=== PATIENT | female | born 1935 | race Caucasian/White ===

== ENCOUNTER 2022-05-20 08:29 | Outpatient (CLI) | payer SELFPAY ==
--- NOTE | 2022-05-20 08:15 | RT.EKG_ITS ---
APPROVED REPORT Exam: Resting ECG Reason for Exam: palpitations Patient Location: O HR:80 bpm ECG Measurements Heart Rate 80 AXIS RI 150 P 56 QRSd 109 QRS -49 QT 393 T 97 QTc 454 Conclusion Sinus rhythm...normal P axis, V-rate 50- 99 Multiform ventricular premature complexes...short R-R, variable morphology LAFB LVH with secondary repolarization abnormality...multi-LVH criteria, abnrm ST-T Anterior infarct, old...Q >40mS, abnormal ST-T, V2-V5
== END 2022-05-20 08:30 | disposition home or self-care (01) ==
LOC: DI.CARD 08:30
PROVIDERS: PCP Family Medicine; Visit Provider Internal Medicine Cardiovascular Disease
DX: I10 Essential (primary) hypertension (principal); R00.2 Palpitations
CPT/HCPCS: 93010

== ENCOUNTER → 2022-08-01 10:15 | Outpatient (BNVA) | payer MEDICARE, OTHER, SELFPAY | PROVIDERS: PCP Family Medicine; Referring Provider Family Medicine; Visit Provider Internal Medicine Cardiovascular Disease | DX: R60.0 Localized edema (principal); I42.9 Cardiomyopathy, unspecified; R00.2 Palpitations | CPT/HCPCS: 99213 ==

== ENCOUNTER → 2024-01-12 10:23 | Outpatient (BNVA) | payer MEDICARE, MEDICAID, SELFPAY | PROVIDERS: PCP Family Medicine; Referring Provider Family Medicine; Visit Provider Student in an Organized Health Care Education/Training Program | DX: J45.909 Unspecified asthma, uncomplicated (principal); R13.10 Dysphagia, unspecified | CPT/HCPCS: 99214 ==

== ENCOUNTER → 2024-07-14 11:11 | Outpatient (BNVA) | payer MEDICARE, MEDICAID, SELFPAY | PROVIDERS: PCP Family Medicine; Referring Provider Family Medicine; Visit Provider Physician Assistant Surgical | DX: J45.909 Unspecified asthma, uncomplicated (principal) | CPT/HCPCS: 99214 ==

== ENCOUNTER 2024-12-26 18:09 | Inpatient (IN) | payer MEDICARE, MEDICAID, SELFPAY ==
--- NOTE | 2024-12-26 20:21 | W.PM.HP.N ---
Date of service: 12/26/24 Time of Service: 21:41 Assessment and Plan Assessment and plan (1) Acute hypoxic respiratory failure: Status: Acute Assessment and plan: Secondary to post-influenza pneumonia. Treat with IV antibiotics as below. Continue with supplemental O2 to maintain saturations above 90% and titrate off as able. (2) Pneumonia: Start date: 12/26/24 Status: Acute Assessment and plan: Post-influenza Pneumonia Continue with IV ceftriaxone and azithromycin. Continue with supplemental O2 to maintain O2 saturations above 90s. Unclear if blood cultures were obtained prior to transfer. (3) Influenza A: Status: Acute Assessment and plan: Patient was treated with Tamiflu following her initial diagnosis. Unclear as to whether she completed this course. Would not derive benefit now from resuming or continuing. (4) Atrial fibrillation: Status: Acute Assessment and plan: New diagnosis. Patient?s rates are currently controlled and she is HD stable. Continue Diltiazem per [facility] Home Medication list. ?CHADS-VASC score is 7 given co-morbidities (11.2% annual risk of CVA) while her HASBLED score is 5 (9.1% risk of major bleeding event annually). Would have discussion with patient and family regarding goals of care and shared decision making during her admission prior to initiating anticoagulation. She would be a good candidate for Watchman and referral to tertiary care center for evaluation if she is interested. Will obtain echo in the AM. Continue to monitor on telemetry. (5) Asthma: Status: Chronic Assessment and plan: Will provide Duonebs prn. Will hold on steroids at this point. Continue with supplemental O2. (6) Hallucinations: Status: Acute Assessment and plan: Mentating appropriately currently. Suspect either delirium related to acute infection with pneumonia vs chronic process related to potentially underlying dementia. CT head unremarkable at [facility]. Continue to monitor for now. Will need to frequently oriented the patient, ensure sleep-wake cycles remain intact, keep active during the day and limit nighttime interruptions of sleep. (7) CAD (coronary artery disease): Status: Chronic Assessment and plan: Troponin is not elevated. No concern for ACS. Home med list from [facility] includes Plavix as one of her medications. Will need pharmacy to reconcile her home medications in the morning. (8) HTN (hypertension): Assessment and plan: Await pharmacy?s reconciliation of home medications in the AM, then will resume antihypertensive regimen in the morning. (9) HLD (hyperlipidemia): Assessment and plan: Await pharmacy?s reconciliation of home medications in the AM. (10) Hypothyroidism: Assessment and plan: Await pharmacy?s reconciliation of home medications in the AM, then will resume thyroid replacement therapy (11) GERD (gastroesophageal reflux disease): Status: Chronic Assessment and plan: Will provide PPI (12) HFrEF (heart failure with reduced ejection fraction): Status: Acute Assessment and plan: Plan for echo in the AM. Does not appear to be decompensated on exam. Will need pharmacy to reconcile her home medications in the morning. Hold diuretics for now while we gently hydrate. Unclear if she is on GDMT currently, but per Cardiology note in 2021 she was on Entresto and Metoprolol History of Present Illness History of Present Illness Chief Complaint: Cough and dyspnea Narrative: Patient is an 89yo female with a PMH significant for CHF (EF unknown), CAD, GERD, prior SDH, HTN, HLD, and CVA who presented to [facility] today with complaints of increasing cough and dyspnea within the past couple of days following her diagnosis of Influenza A. The patient was apparently seen in the ED a couple of days ago and diagnosed with Influenza A. She was started on Tamiflu and discharged home. Since that time, she has had increased dyspnea and cough as well as hallucinations at home. Per EMS the patient was hypoxic with O2 saturations in the 80s on room air, improving to the 90s on 4L. She CXR demonstrated new RLL infiltrate concerning for superimposed pneumonia. She was started on Ceftriaxone and azithromycin as well as IVs. Her labs were otherwise notable for mild PARUL with creatinine elevated to 1.15 from prior baseline of 0.7 and she demonstrated a leukocytosis of 12,000. Her EKG was notable for atrial fibrillation without ischemic changes and troponin was negative. CT head was obtained which was negative for any acute findings. Due to [facility] being at capacity transfer to [facility] was requested. Review of Systems Narrative: 12 point ROS was obtained and is negative except per HPI PFSH All Active Problems (Updated 12/26/24 @ 21:39 by Rebeca James MD) HFrEF (heart failure with reduced ejection fraction) (Acute) Acute hypoxic respiratory failure (Acute) GERD (gastroesophageal reflux disease) (Chronic) CAD (coronary artery disease) (Chronic) CHF (congestive heart failure) (Chronic) Hallucinations (Acute) Influenza A (Acute) Atrial fibrillation (Acute) Pneumonia (Acute) Dysphagia (Acute) Abnormal chest xray (Acute) Asthma (Chronic) Cardiomyopathy (Acute) Medical History Pneumonia Medial epicondylitis Pain, joint, shoulder, right Pain in left knee Palpitations Headache Senile hyperkeratosis Cyst of pancreas Diverticulitis Enterocolitis Chronic gastritis Cough variant asthma Allergic rhinitis Subclavian artery stenosis Cerebrovascular disease HTN (hypertension) Bilateral deafness HLD (hyperlipidemia) Hypothyroidism Non-toxic multinodular goiter Surgical History Hx of cholecystectomy H/O: hysterectomy Social History Smoking/Tobacco Use Status: Never Smoking risk assessment performed?: Yes Current gender identity: female Meds Allergies and Home Medications Allergies Allergy/AdvReac Type Severity Reaction Status Date / Time amoxicillin (From Augmentin) Allergy Other (See Verified 07/14/24 11:18 Comment) azithromycin (From Zithromax) Allergy Other (See Verified 07/14/24 11:18 Comment) ciprofloxacin (From Cipro) Allergy Other (See Verified 07/14/24 11:18 Comment) clavulanic acid (From Allergy Other (See Verified 07/14/24 11:18 Augmentin) Comment) insect venom Allergy Other (See Verified 07/14/24 11:18 Comment) metronidazole (From Flagyl) Allergy Other (See Verified 07/14/24 11:18 Comment) Penicillins Allergy Other (See Verified 07/14/24 11:18 Comment) Home Medications ?Medication ?Instructions ?Recorded ?Confirmed ?Type ascorbate calcium (vitamin C) 500 500 mg PO DAILY 03/15/22 07/14/24 History mg tablet cholecalciferol (vitamin D3) 25 25 mcg PO DAILY 03/15/22 07/14/24 History mcg (1,000 unit) capsule clopidogrel 75 mg tablet (Plavix) 75 mg PO DAILY 03/15/22 07/14/24 History hydrochlorothiazide 25 mg tablet 25 mg PO DAILY 03/15/22 07/14/24 History levalbuterol HCl 1.25 mg/3 mL 1.25 mg inhalation Q4H 03/15/22 07/14/24 History solution for nebulization levothyroxine 75 mcg capsule 75 mcg PO DAILY 03/15/22 07/14/24 History vglfwj-hfiizzzk-mhakhzn 1 cap PO BID 03/15/22 07/14/24 History 24,000-76,000-120,000 unit capsule,delayed rel (Creon) loperamide 2 mg capsule 2 mg PO TID PRN 03/15/22 07/14/24 History multivitamin with minerals-folic 1 tab PO DAILY 03/15/22 07/14/24 History acid 120 mcg chewable tablet (Centrum Adult 50 Plus Fresh-Fruity) polyethylene glycol 3350 17 17 g PO DAILY 03/15/22 07/14/24 History gram/dose oral powder (Miralax) potassium chloride 10 mEq 10 meq PO DAILY 03/15/22 07/14/24 History capsule,extended release simvastatin 40 mg tablet 40 mg PO DAILY 03/15/22 07/14/24 History albuterol sulfate 90 mcg/actuation 2 puff inhalation QID PRN 03/25/22 07/14/24 History aerosol inhaler budesonide-formoterol HFA 160 2 puff inhalation BID 03/25/22 07/14/24 History mcg-4.5 mcg/actuation aerosol inhaler (Symbicort) sennosides 8.6 mg capsule (senna) 8.6 mg PO DIRECTED PRN 03/25/22 07/14/24 History sacubitril 24 mg-valsartan 26 mg 1 tab PO BID 08/01/22 07/14/24 History tablet (Entresto) zinc sulfate See Rx Instructions .Route 07/16/23 07/14/24 History DIRECTED acetaminophen 500 mg capsule 1,000 mg PO Q6H PRN 01/12/24 07/14/24 History calcium carbonate 500 mg PO DAILY 01/12/24 07/14/24 History diltiazem HCl 180 mg 180 mg PO DAILY 01/12/24 07/14/24 History capsule,extended release 24 hr furosemide 20 mg tablet (Lasix) 40 mg PO DAILY 01/12/24 07/14/24 History metoprolol succinate 25 mg 50 mg PO DAILY 01/12/24 07/14/24 History tablet,extended release 24 hr tiotropium bromide 2.5 2 puff inhalation QDAY 01/12/24 07/14/24 History mcg/actuation mist for inhalation Exam Narrative Exam Narrative: Gen: Pleasant elderly female lying in bed in no acute distress HEENT: AT/NC. PERRL. No scleral icterus. Mucous membranes moist Neck: Supple. Full ROM. No JVD, thyromegaly or lymphadenopathy. CVS: RRR with normal S1/S2. No M/G/R Lungs: Rhonchi noted in the right lower lobe without overt wheezing. Normal effort. Abdomen: S/NT/ND. No guarding or rebound. No masses Extremities: Warm and well perfused. No C/C/E. Pulses 2/4 in DP/TP Neuro: Alert and oriented x 3. CN 3-12 intact. Normal strength and sensation throughout. Speech is fluent Psych: Appropriate and cooperative Skin: intact without rashes or lesions Results Imaging Chest x-ray: report reviewed (New bilateral lower lobe infiltrates with small pleural effusions) Imaging Studies: CT of the head report reviewed No large territorial infarct or intercranial bleed Labs Labs: Labs from [facility] reviewed and are as follows WBC 12.3 Hemoglobin 13.7 Hematocrit 40.6 Platelets 260 VBG 7.3 / Time Spent Time spent with Patient: 55-74 minutes Time was spent: preparing to see the patient(eg.review tests), obtaining and/or reviewing separately otained hiistory, ordering medications,tests, procedures, referring, communicating with other health assurance services manager health care (Discussed with Dr. James, daytime hospitalist regarding transfer), indepentently interpreting results, counseling the patient and care coordination
[2024-12-26] MEDS: Doxycycline Hyclate 100 MG CAP PO (22:09)
[2024-12-26] MEDS: Lactated Ringers 1,000 ML 100 ML IV (22:47)
[2024-12-26] MEDS: Enoxaparin 40 MG/0.4 ML SYR 30 MG SC (22:51)
[2024-12-26 23:00] VITALS: BP 89/56; PULSE 65; RESP 20; TEMP 37.1; O2SAT 97
[2024-12-26 23:07] VITALS: BP 89/56; PULSE 65; RESP 20; TEMP 37.1; O2SAT 97
[2024-12-27] VITALS (10 sets, daily range): BP systolic 99–151; BP diastolic 46–91; PULSE 63–94; RESP 16–20; TEMP 36.3–37.9; O2SAT 90–97
[2024-12-27] MEDS: Levothyroxine 75 MCG TAB PO (06:12)
[2024-12-27] MEDS: Doxycycline Hyclate 100 MG CAP PO ×2 (06:12→21:41)
--- NOTE | 2024-12-27 06:30 | W.PC.ACHO ---
Registration Status: Primary Language: Preferred Language: Medical / Surgical History (Last Reviewed 12/26/24 @ 20:22 by Rebeca James MD) Medial epicondylitis Pain, joint, shoulder, right Pain in left knee Palpitations Headache Senile hyperkeratosis Cyst of pancreas Diverticulitis Enterocolitis Chronic gastritis Cough variant asthma Allergic rhinitis Subclavian artery stenosis Cerebrovascular disease HTN (hypertension) Bilateral deafness HLD (hyperlipidemia) Hypothyroidism Non-toxic multinodular goiter (Last Reviewed 12/26/24 @ 20:22 by Rebeca James MD) Hx of cholecystectomy H/O: hysterectomy Most Recent Vital Signs Temperature 37.3 C 12/27/24 03:52 Temperature Source Temporal Artery Scan 12/27/24 03:52 Pulse 84 12/27/24 03:52 Pulse Rhythm Irregular 12/26/24 23:07 Respiratory Rate 18 12/27/24 03:52 Respiratory Effort Normal 12/26/24 23:07 Respiratory Pattern Normal 12/26/24 23:07 Blood Pressure 116/69 12/27/24 03:52 Pulse Oximetry 96 12/27/24 03:52 Oxygen Delivery Method Nasal Cannula 12/27/24 03:52 Oxygen Flow Rate 1.5 12/27/24 03:52 Pain Level 0 12/26/24 23:07 Allergies amoxicillin (From Augmentin) Allergy (Verified 07/14/24 11:18) Other (See Comment) azithromycin (From Zithromax) Allergy (Verified 07/14/24 11:18) Other (See Comment) ciprofloxacin (From Cipro) Allergy (Verified 07/14/24 11:18) Other (See Comment) clavulanic acid (From Augmentin) Allergy (Verified 07/14/24 11:18) Other (See Comment) insect venom Allergy (Verified 07/14/24 11:18) Other (See Comment) metronidazole (From Flagyl) Allergy (Verified 07/14/24 11:18) Other (See Comment) Penicillins Allergy (Verified 07/14/24 11:18) Other (See Comment) Active Medications Generic Name Dose Route Start Last Admin Trade Name Freq PRN Reason Stop Dose Admin Doxycycline Hyclate 100 mg 12/26/24 19:00 12/27/24 06:12 Doxycycline Hyclate 100 Mg Cap PO 100 mg Q12H DEEPALI Administration Enoxaparin Sodium 30 mg 12/26/24 23:00 12/26/24 22:51 Enoxaparin 40 Mg/0.4 Ml Syr SC 30 mg HS DEEPALI Administration Ringer's Solution 1,000 mls @ 100 mls/hr 12/26/24 18:15 12/26/24 22:47 IV 100 mls/hr INFUSION DEEPALI Administration Levothyroxine Sodium 75 mcg 12/27/24 06:00 12/27/24 06:12 Levothyroxine 75 Mcg Tab PO 75 mcg DAILY@0600 DEEPALI Administration IV IV Catheter Type [Right Peripheral IV Forearm] IV Catheter Gauge [Right 18 Forearm] Diagnostics 12/27/24 Range/Units 05:35 WBC Pending RBC Pending Hgb Pending Hct Pending MCV Pending MCH Pending MCHC Pending RDW Pending Plt Count Pending MPV Pending Sodium Pending Potassium Pending Chloride Pending Carbon Dioxide Pending Anion Gap Pending BUN Pending Creatinine Pending Est GFR (CKD-EPI 2020) Pending Glucose Pending Calcium Pending Intake and Output - 24 Hour Total 12/26/24 thru 12/26/24 23:07 Weight 49.351 kg Other: Urine Color Yellow Urine Appearance Clear Urine Odor Normal Falls Risk Assessment History of Falls No History 12/26/24 23:07 Contributing Factors No Factors 12/26/24 23:07 Ambulatory Aids Uses ambulatory device 12/26/24 23:07 Fall Total Score 15 12/26/24 23:07 Level of Risk Standard/Low Risk 12/26/24 23:07 Problems (Last Reviewed 12/26/24 @ 20:22 by Rebeca James MD) HFrEF (heart failure with reduced ejection fraction) (Acute) Acute hypoxic respiratory failure (Acute) GERD (gastroesophageal reflux disease) (Chronic) CAD (coronary artery disease) (Chronic) Hallucinations (Acute) Influenza A (Acute) Atrial fibrillation (Acute) Pneumonia (Acute) Asthma (Chronic) v v v v v v v v v Sending and/or Receiving Nurses: Please use comment section below to note any information pertinent to the patient hand-off not included above. Information / Comments: Report received from: pt transferred from [facility] ER to [facility] via ambulance. AAO x 4 individual who lives at home alone. she is id Flu A+, PNA and has new onset AFIBl. Patient able to ambulate with standby assist. VSS, shonna site, #20 in LFA. She received a NS bolus, IC ceftriaxone and azithromycin. patient to arrived go this facily at [id number]
[2024-12-27 06:55] LABS: HCT 31.3 % (36.0-46.0); HGB 10.4 g/dL (11.2-15.7); MCH 32.9 pg (27.0-33.0); MCHC 33.2 % (32.0-36.0); MCV 99 fL (80-95); MPV 9.9 fL (8.0-11.0); Platelet Count 215 10^3/uL (130-400); RBC 3.16 10^6/uL (3.93-5.22); RDW 14.7 % (11.7-14.6); WBC 8.95 10^3/uL (4.4-10.8)
[2024-12-27 07:20] LABS: Anion Gap 9.6 mmol/L (3-11); BUN 28 mg/dL (7-18); CO2 27.4 mmol/L (21.0-32.0); CREATININE 0.8 mg/dL (0.55-1.02); Calcium 8.4 mg/dL (8.5-10.1); Chloride 108 mmol/L (98-107); Estimated GFR 71.27 (mL/min/1.73m2); Glucose 88 mg/dL (74-106); Potassium 3.1 mmol/L (3.5-5.1); Sodium 145 mmol/L (136-145)
[2024-12-27] MEDS: Clopidogrel 75 MG TAB PO (08:33)
[2024-12-27] MEDS: Metoprolol 50 MG TAB PO ×2 (08:33→21:42)
[2024-12-27] MEDS: Oseltamivir 30 MG CAP PO ×2 (08:33→21:44)
[2024-12-27] MEDS: Omeprazole 20 MG CAPCR PO (08:34)
[2024-12-27] MEDS: dilTIAZem CD 180 MG CAPCR PO (08:34)
[2024-12-27] MEDS: Multivitamin TAB 1 TAB PO (08:34)
[2024-12-27] MEDS: Budesonide/Formoterol 160/4.5 6 GM 60 PUFF INH IH ×2 (08:47→21:29)
--- NOTE | 2024-12-27 09:36 | INITIAL_ITS ---
Date of service: 12/27/24 Time of Service: 09:36 Care Management Initial Assmt Initial Assessment Reason for Hospitalization: Pneumonia, Influenza new onset afib Functional Status/Living Situation Patient Presentation: Yoko was sitting up in bed when CM met with her. She was pleasant and agreeable to conversation. Yoko was admitted with Influenza and pneumonia. Clinically she is improving. She is afebrile and is saturating in the 90s on room air. Her vital signs are fairly stable (blood pressure a little low) and she is afebrile. Yoko lives alone in a single family home in [place]. She has one daughter and 2 grandchildren. She reported that she and her daughter are not particularly close but that she is close to her 2 grandchildren who live out of state. Yoko receives Food and fule assistance but no other services. She is independent at baseline but no longer drives. Town of Residence: [place], [place] Resides with: Alone Significant Other/Family: Out of area (daughter local, grandchildren out of state) Employment Status: Retired Instrumental Activities of Daily Living (ADLs): Independent Medications Medication Management: No Issues/Barriers identified Physical Functioning/Mobility Assistive Device: walker Advance Directives Advance Directives: Do you have an Advance Directive: AD On File at [facility]: N 12/26/24 16:46 Date Asked 12/26/24 12/26/24 16:46 AD Date Reviewed COLST On File at [facility] COLST Date Scanned Code Status Resuscitation Status Full Code Portal Pt does not currently have a portal and education provided: No Portal Education: Other (out of area) Insurance Coverage/Financial Issues Insurance: [employer] Medicare Replacement Care Team Visit Care Team Role Provider Type Margarita Eisenebrg NP NURSE PRACTITIONER Malcolm Perera DO Primary Care Provider NON-[facility] STAFF PHYSICIAN [place] Other Providers [facility] OCCUPATIONAL THERAPIS T InPatient Derrell Joaquin Other Providers OTHER Rebeca James MD Attending Provider [facility] STAFF PHYSICIAN Bishnu James MD Admit Provider [facility] STAFF PHYSICIAN Discharge Potential Discharge Needs: PCP F/U Appt Anticipated Barriers to Discharge: Medical Status Patient/Family Education Needs: Review discharge instructions, discuss Ask Me Three Transportation: Private vehicle Plan: Anticipate Yoko will be discharged home with no new services. She will follow up with her PCP and plan of care and transport with family. CM will follow and continue to support discharge planning. Social Determinants of Health Screening Social Determinants of Health last assessed: 12/27/24 Will the Patient Participate in the Screening?: Yes Do you worry about having a steady place to live?: no Problems where you live: no known problems In the past 12 months, have you had to go without electric, gas, oil or water in your home?: no Have you or anyone in your house had to go without enough food to eat?: no Has lack of transportation kept you from medical appointments or from doing things needed for daily living?: no Has anyone in your life made you feel unsafe or unsupported?: no How hard is it for you to pay for the very basics like food, housing, medical care, and heating? Would you say it is:: Not hard at all Do you want help finding or keeping work or a job?: I do not need or want help If for any reason you need help with day-to-day activities such as bathing, preparing meals, shopping, managing finances, etc., do you get the help you need?: I don?t need any help How often do you feel lonely or isolated from those around you?: Never Do you speak a language other than [place]ak[place] at home?: No Does the patient want assistance with any of the above?: No PFSH All Active Problems (Updated 12/27/24 @ 12:28 by Margarita Eisenberg NP) Hypokalemia (Acute) HFrEF (heart failure with reduced ejection fraction) (Acute) Acute hypoxic respiratory failure (Acute) GERD (gastroesophageal reflux disease) (Chronic) CAD (coronary artery disease) (Chronic) CHF (congestive heart failure) (Chronic) Hallucinations (Acute) Influenza A (Acute) Atrial fibrillation (Acute) Pneumonia (Acute) Dysphagia (Acute) Abnormal chest xray (Acute) Asthma (Chronic) Cardiomyopathy (Acute) Medical History Pneumonia Medial epicondylitis Pain, joint, shoulder, right Pain in left knee Palpitations Headache Senile hyperkeratosis Cyst of pancreas Diverticulitis Enterocolitis Chronic gastritis Cough variant asthma Allergic rhinitis Subclavian artery stenosis Cerebrovascular disease HTN (hypertension) Bilateral deafness HLD (hyperlipidemia) Hypothyroidism Non-toxic multinodular goiter Surgical History Hx of cholecystectomy H/O: hysterectomy Social History Smoking/Tobacco Use Status: Never Smoking risk assessment performed?: Yes Alcohol Intake: never Drug use: Never Substance use type: does not use Housing: house Current gender identity: female Do you feel safe at home: Yes Do you feel safe in your relationship?: Yes
[2024-12-27] MEDS: cefTRIAXone 2 GM/50 ML BAG IVPB (09:41)
--- NOTE | 2024-12-27 10:28 | IN_ITS ---
PT Notes Visit Reasons: Influenza A and Pneumonia Physical Therapy Inpatient Initial Evaluation Date: 12/27/2024 Referring Doctor: Rebeca James MD PT Orders: PT CONSULT: Limited ability Precautions: Fall. ON DROPLET PRECAUTIONS. Activity as tolerated. Patient Profile/Admitting Diagnosis: Yoko is an 89 year-old female admitted for management of acute hypoxic respiratory failure with PNA along with influenza A infection. She came in on 12/26 2024 with c/o increased cough and shortness of breath. PMHX: All Active Problems (Updated 12/26/24 @ 21:39 by Rebeca James MD) HFrEF (heart failure with reduced ejection fraction) (Acute) Acute hypoxic respiratory failure (Acute) GERD (gastroesophageal reflux disease) (Chronic) CAD (coronary artery disease) (Chronic) CHF (congestive heart failure) (Chronic) Hallucinations (Acute) Influenza A (Acute) Atrial fibrillation (Acute) Pneumonia (Acute) Dysphagia (Acute) Abnormal chest xray (Acute) Asthma (Chronic) Cardiomyopathy (Acute) Medical History Pneumonia Medial epicondylitis Pain, joint, shoulder, right Pain in left knee Palpitations Headache Senile hyperkeratosis Cyst of pancreas Diverticulitis Enterocolitis Chronic gastritis Cough variant asthma Allergic rhinitis Subclavian artery stenosis Cerebrovascular disease HTN (hypertension) Bilateral deafness HLD (hyperlipidemia) Hypothyroidism Non-toxic multinodular goiter Surgical History Hx of cholecystectomy H/O: hysterectomy Social History/Home Situation: Lives alone in a praivate home with 2-3 steps to enter with rails on B sides. Independent indoors and outdoors without an assitive device. Rides the RCT for all essential errands. Daughter [address] and makes sure that grocery shopping is done for patient. Equipment Owned/DME: [facility], Subjective: Reported mild shortness of breath after walk from her room in 211 to the therapy room about 150 feet. Complained of pain in left chest with coughing. Objective: General Observation: IV throuh L UE. telemetry monitoring in place. Mental Status: Alert and oriented as to person, place, time, and purpose. Able to pay attention, focus, and respond appropriately. Pain: Occasional pain in L chest with coughing about 2-3/10 Vital Signs: After walking about 150 feet and doing the stairs: 118/74 mmHg, 72 bpm, 85% on RA but resaturate back up to 91% in less than a minute ROM: Right Upper Extremity: Shoulder Flexion less than 25% of available AROM due to previois surgery. Shoulder abduction less than 25% of available AROM due to previois surgery. Elbow flexion WFL. Wrist flexion WFL. Functional opening and closing of hand WFL. Left Upper Extremity: Shoulder Flexion less than 25% of available AROM due to p reviois surgery. Shoulder abduction less than 25% of available AROM due to previois surgery. Elbow flexion WFL. Wrist flexion WFL. Functional opening and closing of hand WFL. Right Lower Extremity: Hip flexion WFL. Hip abduction WFL. Knee flexion WFL. Ankle dorsiflexion to neutral only. Ankle plantarflexion WFL. Left Lower Extremity: Hip flexion WFL. Hip abduction WFL. Knee flexion WFL. Ankle dorsiflexion to neutral only. Ankle plantarflexion WFL. Strength: Right Upper Extremity: Shoulder flexors 2-/5. Shoulder abductors 2-/5. Elbow flexors 4-/5. Elbow extensors 4-/5. Information Coder strong. Left Upper Extremity: Shoulder flexors 2-/5. Shoulder abductors 2-/5. Elbow flexors 4-/5. Elbow extensors 4-/5. Information Coder strong. Right Lower Extremity: Hip flexors 4-/5. Hip abductors 4-/5. Knee flexors 4-/5. Knee extensors 4-/5. Ankle dorsiflexors 4-/5. Ankle plantarflexors 4-/5. Left Lower Extremity: Hip flexors 4-/5. Hip abductors 4-/5. Knee flexors 4-/5. Knee extensors 4-/5. Ankle dorsiflexors 4-/5. Ankle plantarflexors 4-/5. Bed Mobility/Transfers: Minimal cueing provided for use of B hands as needed for support, movement sequence, AD management, and posture to reduce fall risk and minimize pain r eport Rolling with cues for safe/correct technique Sit to stand stand by assist Stand to sit stand by assist Gait: Facilitated safe and correct performance of level surface ambulation covering a distance of about 150 feet + 100 feet using no assistive device, stand by assist only. One instance of path deviation seen during a directional change to R but no LOB. Complained of brief shortness of breath that subsided with rest after walking the first trip and doing the satirs right after. Stairs: Guided patient with safe and correct negotiation of 6 x 4-inch steps and 4 x 6- inch steps while holding onto B rails for support with mild shortness of breath observed. Stand by assist only. Held onto 1 rail for support. THERA ACT: Worked on increasing activity tolerance and safety of functional mobility performance as well as on techniques for deep breathing with chest expansion exercises for this session: DBE with chest expansion doing shoulder flexion/extension x 5 and B shoulder horizontal abduction/adduction x 5. Balance: Static Sitting: Normal Dynamic Sitting: Normal Static Standing: Good Dynamic Standing: Fair Special Tests: Mobility Limitations Standardized Measure [facility] AM-PAC 6 clicks Basic Mobility Inpatient Short Form: Raw Score: 24 CMS Score: 0% deficit Informed Consent/Education: Patient was instructed in purpose of PT consult and plan of care. Agreeable to proceed with established PT POC to achieve personal goals. Assessment: Only required stand by assist with all mobility ADl performance today with shortness of breath observed as above. No assistive device needed but patient has them available at home. Has chronic limitations in B shoulders from previous surgery. Patient presents with clinical signs and symptoms consistent with current/admitting diagnoses that have resulted to mobility limitations, gait instability, generalized weakness, and overall ADL decline as demonstrated by the following impairment level findings: 1. Decreased strength to B UE/LE major muscle groups, 2. Impaired standing balance 3. Impaired activity tolerance 4. Limitation of joint range of motion in B shoulders (chroninc) 5. Shortness of breath Impairments are contributing to the following functional limitations: 1. Increased completion time for mobility ADL performance 2. Increased risk for falls 3. Difficulty with managing steps alone safely Patient is assessed as a 94150 moderate complexity based on the following: History: 89-year-old female with past medical history as indicated above Examination: Demonstrable impairment in strength, balance, and mobility level with underlying impairments and functional limitations as exhibited above Presentation: Evolving Decision Makin moderate complexity Goals: Goals X1 week 1. Supine-Sit independent 2. Sit-Supine independent 3. Sit-Stand independent 4. Stand-Sit independent 5. Bed-Chair independent 6. Chair-Bed independent 7. Independent gait on level surface with use of no device for at least 300 feet without report of pain nor dyspnea 8. Independent stair negotiation while holding onto B rails for at least 5 steps without report of pain nor dyspnea 9. Independent with home exercise program 10. Good static and dynamic standing balance/tolerance Plan of Care/Treatment Plan: 1-2x/day, 7 days/week x 1 week. Plan of care has been reviewed with the DEPUTY CLERK OF SUPERIOR COURT providing the service under Physical Therapy direction. Initiate Physical Therapy intervention for pain management as needed, strengthening, bed mobility, transfers, gait, stairs, balance training, and use of assistive device. DISCHARGE RECOMMENDATIONS: [] Home with no services [] [X] Home with services. Patient will benefit from home health PT services in order to progress mobility level using least restrictive assistive ambulatory device, assess home safety, identify additional equipment needs, and establish a functional maintenance program that will increase ability of patient to remain at home. [] Home with outpatient PT [] [] SNF for continued rehabilitation [] [] Senior Care Care [] [] SNF versus LTC based on ability to participate and progress [] TREATMENT CODE/TIME: 70564 x 20 minutes for 1 unit, 74489 x 24 minutes for 2 units (10:28-11:12). Thank you for the opportunity to participate in the care of this patient. Yola Langston PT, DPT, CLT [facility] [place], [place]
[2024-12-27] MEDS: Lactated Ringers 1,000 ML 100 ML IV (11:51)
--- NOTE | 2024-12-27 12:22 | PGE_ITS ---
Date of Service Date of service: 12/27/24 Time of Service: 12:22 Assessment and Plan Assessment and plan (1) Acute hypoxic respiratory failure: Status: Resolved Assessment and plan: Secondary to post-influenza pneumonia, continue antibiotics day 2/5 Continue with supplemental O2 to maintain saturations above 90% and titrate off as able. (2) Pneumonia: Status: Acute Assessment and plan: Post-influenza Pneumonia Continue with IV ceftriaxone and azithromycin day 2/5. Continue with supplemental O2 to maintain O2 saturations above 90s. (3) Influenza A: Status: Acute Assessment and plan: Patient was treated with Tamiflu following her initial diagnosis. will complete course of Tamiflu tonight. (4) Atrial fibrillation: Status: Acute Assessment and plan: New diagnosis. heart rate 60-80's Continue Diltiazem, adjust as needed. ? CHADS-VASC score is 7 given co-morbidities (11.2% annual risk of CVA) while her HASBLED score is 5 (9.1% risk of major bleeding event annually). Needs discussion with patient and family regarding goals of care and shared decision making during her admission prior to initiating anticoagulation. Palliative care consult placed. Will check an echo and use checking in the importance She would be a good candidate for Watchman and referral to tertiary care center for evaluation if she is interested. Awaiting echo in the AM. Continue to monitor on telemetry. (5) Asthma: Status: Chronic Assessment and plan: Will provide Duonebs prn. Will hold on steroids at this point. Continue with supplemental O2. (6) Hallucinations: Status: Resolved Assessment and plan: Mentating appropriately currently. Suspect either delirium related to acute infection with pneumonia vs chronic process related to potentially underlying dementia. CT head unremarkable at [facility]. Continue to monitor for now. Will need to frequently oriented the patient, ensure sleep-wake cycles remain intact, keep active during the day and limit nighttime interruptions of sleep. (7) CAD (coronary artery disease): Status: Chronic Assessment and plan: Troponin is not elevated. No concern for ACS. Home med list from [facility] includes Plavix as one of her medications. Will need pharmacy to reconcile her home medications in the morning. (8) GERD (gastroesophageal reflux disease): Status: Chronic Assessment and plan: Will provide PPI (9) HFrEF (heart failure with reduced ejection fraction): Status: Ruled-out Assessment and plan: Plan for echo in the AM. Does not appear to be decompensated on exam. Will need pharmacy to reconcile her home medications in the morning. Hold diuretics for now while we gently hydrate. Unclear if she is on GDMT currently, but per Cardiology note in 2021 she was on Entresto and Metoprolol (10) Hypokalemia: Status: Acute Assessment and plan: replete and follow add magnesium Subjective Subjective Patient reports: no new complaints, tolerating liquids well, tolerating a regular diet and afebrile; denies shortness of breath Exam Narrative Exam Narrative: Thin elderly female of stated age no acute distress head is atraumatic eyes nonicteric noninjected neurologic she is awake alert oriented to person place (knows shes in [facility] but thought rehab), poor historian signs of cognitive impairment. Psychiatric appropriate mood and affect no behavioral disturbances no further reports of hallucinations. Oral mucosas slightly dry cardiovascular regular rate respirations even and unlabored diminished throughout no rhonchi or wheezing abdomen flat nontender moves extremities no peripheral edema Objective Last Vital Signs Temp 37.5 C 12/27/24 10:28 Pulse 63 12/27/24 10:28 Resp 16 12/27/24 10:28 BP 127/56 L 12/27/24 10:59 Pulse Ox 90 L 12/27/24 10:28 Laboratory Results - last 24 hr 12/27/24 06:44 WBC 8.95 RBC 3.16 L Hgb 10.4 L Hct 31.3 L MCV 99 H MCH 32.9 MCHC 33.2 RDW 14.7 H Plt Count 215 MPV 9.9 Sodium 145 Potassium 3.1 L Chloride 108 H Carbon Dioxide 27.4 Anion Gap 9.6 BUN 28 H Creatinine 0.8 Est GFR (CKD-EPI 2020) 71.27 Glucose 88 Calcium 8.4 L Time Spent with Patient Time Spent with Patient: 35-49 minutes Time was spent: preparing to see the patient(eg.review tests), obtaining and/or reviewing separately otained hiistory, indepentently interpreting results and counseling the patient
[2024-12-27] MEDS: Potassium Chloride 20 MEQ TABCR PO ×2 (13:09→17:21)
--- NOTE | 2024-12-27 14:06 | W.NUTRFU ---
Date of service: 12/27/24 Time of Service: 10:00 Nutrition Note NOTE: Pt sitting in chair on my visit. Yoko is a 89to female admitted with acute resp failure/PNA, Flu A, Afib. Hx of CAD, HTN, hypothyroidism, GERD, HFrEF. She was ordered for heart healthy diet on admission - i liberalized this to low sodium. Pt shared her dislike of the food brought to her thus far - I took her complaints and will share with kitchen to hopefully improve her experience. Hx of dysphagia noted - denies any concerns with chewing and swallowing at this time. BMI 21.2 is wnl but less desirable for her age for decreased mortality. Denies nausea - reports last BM was yesterday. Pt agrees to trial of oral nutrition supplement of Boost at fst and dinner to help with intake of calories/protein. Potassium 3.1 today - being repleted. Will follow pt's intake, labs, weight, acceptance/toleration of BID ONS. Time Spent in Nutritional Counseling and Treatment: 10 minutes
[2024-12-27 15:14] LABS: Lab Add On Test DONE
--- NOTE | 2024-12-27 16:39 | PTTR_ITS ---
PT Notes Visit Reasons: Influenza A and Pneumonia Physical Therapy Inpatient Treatment Note Date: 12/27/2024 Precautions: Fall. ON DROPLET PRECAUTIONS. Activity as tolerated. Subjective: Hopeful that she would feel better soon. Looking forward to going home tomorrow. Wondering how she can get her ride-- patient was assured that senior case manager will make sure that that is taken cared of before she goes tomorrow. Objective: General Observation: IV access through L UE. Telemetry monitoring in place. Mental Status: Alert and oriented as to person, place, time, and purpose. Able to pay attention, focus, and respond appropriately. Pain: Occasional pain in L chest with coughing about 2-3/10 Vital Signs: Before start of walk: 126/65 mmHg, 74 bpm, 94% in less than a minute Bed Mobility/Transfers: Minimal cueing provided for use of B hands as needed for support, movement sequence, AD management, and posture to reduce fall risk and minimize pain report Rolling with cues for safe/correct technique Sit to stand supervision Stand to sit supervision Gait: Facilitated safe and correct performance of level surface ambulation covering a distance of about 250 feet using no assistive device, stand by assist only. Mild path deviation but no LOB. Complaiedn of mild SOb and was glad that she could rest. FAce mask on while on hallway. THERA EX: Worked on techniques for deep breathing with chest expansion exercises for this session: DBE with chest expansion doing shoulder flexion/extension x 5 and B shoulder horizontal abduction/adduction x 5. Bilateral LAQs at edge of bed incorporating breathing exercises x 10. Balance: Static Sitting: Normal Dynamic Sitting: Normal Static Standing: Good Dynamic Standing: Fair Assessment: Worked on increasing activity tolerance and safety of functional mobility performance. Had 1 small bout of coughing but nor report of pain in L chest this time. covered quickly and resaturated back from 86% up to 94% on RAafter walking activity. Plan of Care/Treatment Plan: 1-2x/day, 7 days/week x 1 week. Plan of care has been reviewed with the JACK FRAME TENDER providing the service under Physical Therapy direction. Initiate Physical Therapy intervention for pain management as needed, strengthening, bed mobility, transfers, gait, stairs, balance training, and use of assistive device. DISCHARGE RECOMMENDATIONS: [] Home with no services [] [X] Home with services. Patient will benefit from home health PT services in order to progress mobility level using least restrictive assistive ambulatory device, assess home safety, identify additional equipment needs, and establish a functional maintenance program that will increase ability of patient to remain at home. [] Home with outpatient PT [] [] SNF for continued rehabilitation [] [] Graduate Teacher Education Care [] [] SNF versus LTC based on ability to participate and progress [] TREATMENT CODE/TIME: 66993 x 15 minutes for 1 unit, 25716 x 16 minutes for 1 unit (04:39-05:10).
[2024-12-27] MEDS: Enoxaparin 40 MG/0.4 ML SYR SC (21:42)
[2024-12-28] VITALS (8 sets, daily range): BP systolic 98–155; BP diastolic 59–90; PULSE 72–93; RESP 15–20; TEMP 36.1–37.6; O2SAT 90–95
[2024-12-28] MEDS: Levothyroxine 75 MCG TAB PO (05:56)
[2024-12-28] MEDS: Multivitamin TAB 1 TAB PO (07:52)
[2024-12-28] MEDS: dilTIAZem CD 180 MG CAPCR PO (07:52)
[2024-12-28] MEDS: Omeprazole 20 MG CAPCR PO (07:52)
[2024-12-28] MEDS: cefTRIAXone 2 GM/50 ML BAG IVPB (07:53)
[2024-12-28] MEDS: Metoprolol 50 MG TAB PO ×2 (07:53→20:19)
[2024-12-28] MEDS: Potassium Chloride 20 MEQ TABCR PO ×2 (07:53→12:02)
[2024-12-28] MEDS: Clopidogrel 75 MG TAB PO (07:53)
[2024-12-28] MEDS: Normal Saline Flush 10 ML SYR ×2 (08:07→08:57)
[2024-12-28] MEDS: Budesonide/Formoterol 160/4.5 6 GM 60 PUFF INH IH ×2 (08:53→21:35)
[2024-12-28] MEDS: Doxycycline Hyclate 100 MG CAP PO ×2 (10:21→20:19)
--- NOTE | 2024-12-28 11:10 | PDOC.CMPRO ---
Date of service: 12/28/24 Time of Service: 11:10 Care Management Progress Note Progress Note Text Progress Note Text: Yoko was sitting up in bed when CM met with her. the physical therapist had just arrived to work with her. Yoko appeared to be in good spirits and was joking with the staff. She stated that she is feeling much better. She is no longer requiring supplemental oxygen and has been able to ambulate in her room. Yoko continues to receive IV antibiotics to treat her pneumonia. Her vital signs are stable and she remains afebrile. Discharge Potential Discharge Needs: PCP F/U Appt Anticipated Barriers to Discharge: None Identified Patient/Family Education Needs: Review discharge instructions, discuss Ask Me Three Transportation: Private vehicle Plan: Anticipate Yoko will be discharged home with no new services. She will follow up with her PCP and plan of care and transport with family. CM will follow and continue to support discharge planning. Social Determinants of Health Screening Social Determinants of Health last assessed: 12/28/24 Will the Patient Participate in the Screening?: Yes Do you worry about having a steady place to live?: no Problems where you live: no known problems In the past 12 months, have you had to go without electric, gas, oil or water in your home?: no Have you or anyone in your house had to go without enough food to eat?: no Has lack of transportation kept you from medical appointments or from doing things needed for daily living?: no Has anyone in your life made you feel unsafe or unsupported?: no How hard is it for you to pay for the very basics like food, housing, medical care, and heating? Would you say it is:: Not hard at all Do you want help finding or keeping work or a job?: I do not need or want help If for any reason you need help with day-to-day activities such as bathing, preparing meals, shopping, managing finances, etc., do you get the help you need?: I don?t need any help How often do you feel lonely or isolated from those around you?: Never Do you speak a language other than [place] at home?: No Does the patient want assistance with any of the above?: No
--- NOTE | 2024-12-28 11:16 | PGE_ITS ---
Date of Service Date of service: 12/28/24 Time of Service: 11:16 Assessment and Plan Assessment and plan (1) Acute hypoxic respiratory failure: Status: Resolved Assessment and plan: Secondary to post-influenza pneumonia, continue antibiotics day 3 has been weaned off supplemental O2 (2) Pneumonia: Status: Acute Assessment and plan: Post-influenza Pneumonia Continue with IV ceftriaxone and azithromycin day 3/5. weaned of supplemental O2 I/S and acapella (3) Influenza A: Status: Acute Assessment and plan: Patient completed course of Tamiflu (4) Atrial fibrillation: Status: Acute Assessment and plan: New diagnosis. heart rate 60-80's Continue Diltiazem, adjust as needed. ? CHADS-VASC score is 7 given co-morbidities (11.2% annual risk of CVA) while her HASBLED score is 5 (9.1% risk of major bleeding event annually). Needs discussion with patient and family regarding goals of care and shared decision making during her admission prior to initiating anticoagulation. Palliative care consult placed. Will check an echo and use checking in the importance She would be a good candidate for Watchman and referral to tertiary [facility] center for evaluation if she is interested. echo EF 60% with no significant valvular disease. discontinue telemetry. discussed with Daughter Surekha and patient, will defer anticoagulation decision until after further discussion with PCP. (5) Asthma: Status: Chronic Assessment and plan: stable, Duonebs prn. (6) Hallucinations: Status: Resolved Assessment and plan: Mentating appropriately currently. Suspect either delirium related to acute infection with pneumonia vs chronic process related to potentially underlying dementia. CT head unremarkable at [facility]. Continue to monitor for now. Will need to frequently oriented the patient, ensure sleep-wake cycles remain intact, keep active during the day and limit nighttime interruptions of sleep. (7) CAD (coronary artery disease): Status: Chronic Assessment and plan: Troponin is not elevated. No concern for ACS. Home med list from [facility] includes Plavix as one of her medications. Will need pharmacy to reconcile her home medications in the morning. (8) GERD (gastroesophageal reflux disease): Status: Chronic Assessment and plan: Will provide PPI (9) HFrEF (heart failure with reduced ejection fraction): Status: Ruled-out Assessment and plan: EF 60% no evidence of fluid overload or HF Cardiology note in 2021 she was on Entresto and Metoprolol (10) Hypokalemia: Status: Acute Assessment and plan: replete and follow magnesium 2.0 check labs in am (11) Discharge planning issues: Status: Acute Assessment and plan: anticipate home with services tomorrow: New PT/OT, nursing, ENVIRONMENTAL AID discussed with Dr James Subjective Subjective Patient reports: no new complaints, feels better, tolerating liquids well, tolerating a regular diet, shortness of breath (with activity) and afebrile Exam Narrative Exam Narrative: Thin elderly female of stated age no acute distress head is atraumatic eyes nonicteric noninjected neurologic she is awake alert oriented to person, poor historian signs of cognitive impairment. Psychiatric appropriate mood and affect no behavioral disturbances. Oral mucosas slightly dry cardiovascular regular rate respirations even and unlabored diminished throughout no rhonchi or wheezing abdomen flat nontender moves extremities no peripheral edema Objective Last Vital Signs Temp 37 C 12/28/24 08:00 Pulse 88 12/28/24 08:00 Resp 20 12/28/24 08:00 BP 155/90 H 12/28/24 08:00 Pulse Ox 94 12/28/24 09:01 Laboratory Results - last 24 hr 12/27/24 06:44 Magnesium 2.0 Add-On Test Request DONE Time Spent with Patient Time Spent with Patient: 35-49 minutes Time was spent: preparing to see the patient(eg.review tests), obtaining and/or reviewing separately otained hiistory, ordering medications,tests, procedures, indepentently interpreting results and counseling the patient
--- NOTE | 2024-12-28 13:34 | W.PALLCONSUL ---
Date of service: 12/28/24 Time of Service: 13:35 History of Present Illness Narrative: Yoko He is an 89 yo woman from [facility] who was admitted to [facility] 2 days ago (from [facility] ED, as their inpatient unit was full) with post-influenza pneumonia with respiratory failure. Medical problems include ASthma/COPD overlap syndrome (followed by [facility] Pulm CLinic as outpt, never smoker, no home O2), Dysphagia, gastritis, ASCVD, CHF/cardiomyopathy, Afib (new dx at this adm, although many Zio patches done in the past) hypothyroidism, Hx diverticulitis, pancreatic insufficiency, macular degeneration. Daughter reports distant traumatic brain blood after fall(~10 years ago), a few other falls with head injuries. #Confusion and hallucinations: Notes from [facility] PCP and ED reviewed in VITL: Daughter reports onset of some confusion and visual hallucinations started July 2024. Of note she had fall with rib contusion at the beginning of the year. Was confused at that time. Had a head CT without contrast which showed chronic microvascular ischemic changes and right frontal lobe encephalomalacia. She had a TSH which was normal and a B12 level normal (638). Both ED visits and PCP notes report that the confusion and visual hallucinations continue. Discussion of whether trialing atypical antipsychotic would help but apparently not done. Hx from daughter via phone: Confusion and hallucinations started summer 2023. Happening more often. Felicity thinks she sundowns, happens more in the evening. happening often now. Daughter thinks that some of the visual hallucination are really from the change in her vision. She is still able to care for herself overall. NO longer vacuums , as it causes severe SOB. She can wash dishes and cook. Still safe as far as the stove and oven sis concerned. Dressing herself OK. Dresses appropriately. Yoko tells Surekha there is an imaginary family who lives in the house. Surekha still works and this is getting pretty stressful. Pt has said she never wants to live in a retirement. She and Surekha have never discussed alternatives. Surekha says Yoko could never live with her. Surekha has thought hat having someone else live with her might work (home share). ANd may need ot live in retirement in the end. #CHF/cardiomyopathy: See 2022 note from [facility] cardiology. VITL: There is a 12/16/2024 echocardiogram which reports sinus rhythm and ejection fraction 60-65%. Full report available in VITL. #Pulmonary: Followed at [facility] Pulm clinic. 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 Pt reports that she does all her own chores (not true), plays [employer] Phone polo: Barbara Additional Services: RTC No MOW Felicity reports they have talked with [facility]: Working on a volunteer visitor. Also talking about someone to come in to help with housework, BUT YOKO REFUSED SO FAR . She does not trust anyone to be in her house. Surekha wishes she would accept the help. Goals: Pt: Daughter: To be able to stay in her home as long as possible..To help her with bills and other activities. Impression of currents health status: Daughter: What bothers you the most: What worries you the most: Surekha: She does stupid things and gets hurt. Coping mechanisms: Function: Ambulation: NO aids ADLs: Independent iADLs: Independent Hearing: OK Vision: Can no longer read due to Mac. degeneration Cognition: Currently oriented to day, year, month, location, president Falls:Yes: Fall 6 weeks ago with rib contusion. Fell several times in the last 2 weeks while filling bird feeders. (Was fun! I made snow angels, got wet, but then went inside and changed) Driving: Gave up driving Palliative Performance Scale % Ambulation Activity and Evidence of Disease Self Care Intake Level of Consciousness 100 Full Normal activity, no evidence of disease Full Normal Full 90 Full Normal activity, some evidence of disease Full Normal Full 80 Full Normal activity with effort, some evidence of disease Full Normal or reduced Full 70 Reduced Unable to do normal work, some evidence of disease Full Normal or reduced Full 60 Reduced Unable to do hobby or some housework, significant disease Occasional assist necessary Normal or reduced Full or confusion 50 Mainly sit/lie Unable to do any work, extensive disease Considerable assistance required Normal or reduced Full or confusion 40 Mainly in bed Unable to do any work, extensive disease Mainly assistance Normal or reduced Full, drowsy, or confusion 30 Totally bed bound Unable to do any work, extensive disease Total care Reduced Full, drowsy, or confusion 20 Totally bed bound Unable to do any work, extensive disease Total care Minimal sips Full, drowsy, or confusion 10 Totally bed bound Unable to do any work, extensive disease Total care Mouth care only Drowsy or coma 0 - - - - Patient Score: As reported by pt 70-80 Spiritual history: NQ Palliative review of systems: Pain: Dyspnea: GI symptoms: Appetite: Depression: Anxiety: None Emotional Distress: Spiritual/Existential Distress: Labs: Cr: 0.8 Liver panel: Albumin: CBC: hgb 10.4 Advanced Care Planning: Advanced Directive: Says Went to addiction nurse for that Health Care Agent: Tells me Surekha is HCA (daughter) Document not on file. Tasneem thinks there is a health care agent form. Surekha has DPOA. COLST: Wishes to be full code. Surekha says she though she was going to outlive everybody Limitations: NA; Not applicable NQ: Not Queried Assessment and Plan Assessment and plan (1) Dementia: Status: Chronic Assessment and plan: Yoko He is an 89 yo woman from [facility] who was admitted to [facility] this week with PNA with respiratory failure. She has rapidly improved and no longer requires supplemental oxygen. As per vasu Irby and MARGY PCP and ED notes, over the last 9 months she has developed sxs of dementia with worsening memory, confusion and visual hallucinations, which daughter describes as sundowning as usually happens at night. Over the last 2 months, she has had 3 or 4 ED visits and one hospital admission (fall with rib injuries, influenza and PNA). Daughter has had to lend increasing support (shopping, housecleaning). It sounds like there has been some interaction with [facility], with offer of volunteer and maybe cleaning services, both of which pt declined (despite daughter asking her to do so. #Dementia with hallucinations: PCP is aware as per notes. Unfortunately, given increasing visits to ED, patient is at risk of no longer being able to live at home alone without additional support. Daughter has been extremely supportive, but continues to work and needs patient to begin excepting help from others if she wishes to remain in her own home. I did find note from PCP discussing possible use of antipsychotics to help with sundowning. Apparently at that time patient declined to take the medications. Not needing it thus far in the hospital. She has at least 1 more night here. Sundowning has not been noted by staff. #GOC: Both pt and daughter say they hope she can remain in her home for the rest of her life. She would never want to live in a retirement. Pt describes a good day as staying in her home with her dog and making her meals. Daughter wishes her Mom would accept services. Bother say she will accept Home Health Services at the time of discharge. PLan: I am going to make referral to [facility] to have them reach out to daughter to set up meeting to discuss resources available and future planning. #Advanced Care planning: There is definitely a DPOA. Both pt and daughter think there is an advanced directive but neither one of them has a copy. No one at PCP office was able to tell me if there was 1. Yoko tells me that she would want her daughter Surekha to make medical decisions for her if she was unable to do so for herself. Given that I think she only has partial capacity at this time, vasu Irby should be involved by being present at all doctors appointments either in person or by phone, and she definitely did present if anything but the simplest decision needs to be made.. Until this sorted out whether there is an advanced directive, no healthcare agent form was drawn up today. Life-sustaining treatment: Patient and I discussed the procedure of CPaR, actual mechanical process, rate of success in restoring heartbeat, short and long-term side effects in survivors (including likely decreased physical and cognitive functioning). Patient did not engage in this discussion. Sounds like she would want to have everything done at this point so that she could return home. I am not sure she had the capacity to understand my concerns with anoxic brain damage should she be resuscitated from cardiac arrest. CPR/intubation also discussed briefly with vasu Irby. Her response was my mom thinks she is going to let live everybody . She did not engages this discussion either. I am not sure that Yoko has the capacity to make decision regarding CODE STATUS. Suggest that medical provider (PCP or Palliative Care Team) revisit this in the future when she is out of the hospital. Phone call to PCP office to talk with him. He is not available. Message left. Explained to daughter that she can have follow-up at palliative office in [facility] if desired. I definitely would follow-up with PCP (apparently they have an appointment in 2 weeks). I will make referral to [facility] today. Palliative care team is happy to follow-up with patient in our office if desired. Please call to set up an appointment. 25 minutes spent today on Advance Care Planning. Patient and family participated voluntarily. Advance care planning may include (not limited to) explanation and discussion of advance directives, choosing and appointing healthcare agents, alternatives to various ACP tools, discussion of (and if indicated, completion of) COLST form, discussion of patient's values and overall goals for treatment, palliative and disease directive care options, ways to avoid hospital readmission including hospice discussions, care preferences should the patient's several other adverse health events.See today's palliative care note for additional information. This note was dictated using speech recognition software. Attempt was made at proofreading, but errors may be present. Please call with questions. (2) Hallucinations: Status: Resolved (3) Acute hypoxic respiratory failure: Status: Resolved (4) Pneumonia: Status: Acute (5) Palliative care patient: Status: Acute (6) Advanced care planning/counseling discussion: Status: Acute PFSH All Active Problems (Updated 12/28/24 @ 15:30 by Xochilt Welch MD) Advanced care planning/counseling discussion (Acute) Palliative care patient (Acute) Dementia (Chronic) Discharge planning issues (Acute) Hypokalemia (Acute) GERD (gastroesophageal reflux disease) (Chronic) CAD (coronary artery disease) (Chronic) CHF (congestive heart failure) (Chronic) Influenza A (Acute) Atrial fibrillation (Acute) Pneumonia (Acute) Dysphagia (Acute) Abnormal chest xray (Acute) Asthma (Chronic) Cardiomyopathy (Acute) Medical History Pneumonia Medial epicondylitis Pain, joint, shoulder, right Pain in left knee Palpitations Headache Senile hyperkeratosis Cyst of pancreas Diverticulitis Enterocolitis Chronic gastritis Cough variant asthma Allergic rhinitis Subclavian artery stenosis Cerebrovascular disease HTN (hypertension) Bilateral deafness HLD (hyperlipidemia) Hypothyroidism Non-toxic multinodular goiter Surgical History Hx of cholecystectomy H/O: hysterectomy Social History Smoking/Tobacco Use Status: Never Smoking risk assessment performed?: Yes Alcohol Intake: never Drug use: Never Substance use type: does not use Housing: house Current gender identity: female Do you feel safe at home: Yes Do you feel safe in your relationship?: Yes Results Last Vital Signs Temp 37 C 12/28/24 08:00 Pulse 88 12/28/24 08:00 Resp 20 12/28/24 08:00 BP 155/90 H 12/28/24 08:00 Pulse Ox 94 12/28/24 09:01 Labs 12/27/24 06:44 12/27/24 06:44 Labs: Laboratory Results - last 24 hr 12/27/24 06:44 Magnesium 2.0 Add-On Test Request DONE Time Spent Time Spent with Patient Time Spent(min): 90
--- NOTE | 2024-12-28 14:59 | PTTR_ITS ---
PT Notes Visit Reasons: Influenza A and Pneumonia Physical Therapy Inpatient Treatment Note Date: 12/28/2024 Precautions: Fall. ON DROPLET PRECAUTIONS. Activity as tolerated. Subjective: Much improved today. Less coughing. Is perkier. No more pain report in L chest. Objective: General Observation: IV access through L UE. Telemetry monitoring in place. Mental Status: Alert and oriented as to person, place, time, and purpose. Able to pay attention, focus, and respond appropriately. Pain: Painnin R knee due to long standing arthritis Vital Signs: WNL as closely monitored by nursing staff; mildly low blood pressure after the walk at 99/65 mmHg, nurse aware Bed Mobility/Transfers: Minimal cueing provided for use of B hands as needed for support, movement sequence, AD management, and posture to reduce fall risk and minimize pain report Rolling with cues for safe/correct technique Sit to stand supervision Stand to sit supervision Gait: Facilitated safe and correct performance of level surface ambulation covering a distance of about 250 feet + 150 feet using no assistive device, stand by assist only. Mild path deviation but no LOB. Complaiedn of mild SOb and was glad that she could rest. Face mask on while on hallway. Stairs: Navigated up and down 3 x 4-inch steps and 2 x 6-inch steps while holding onot B rails for support with [id number] pattern on ascent and step-to on descent. Stand by assist only. MIld shortness of breath but did ot need any standing nor seated rests. THERA EX: In the PM, worked on techniques for deep breathing with chest expansion exercises for this session: DBE with chest expansion doing shoulder flexion/extension x 5 and B shoulder horizontal abduction/adduction x 5. Direct supervision given ins afe performance of standing level exercises as follows: Bilateral heel raises x 10 Partial knee bends x 10 Standing hip abduction x 10 Balance: Static Sitting: Normal Dynamic Sitting: Normal Static Standing: Good Dynamic Standing: Fair Assessment: Patient exhibited improved activity tolerance, strength, and balance skills compared to yesterday. Able to navigate up to 350 feet without an assistive device with less shortness of breath. Plan of Care/Treatment Plan: 1-2x/day, 7 days/week x 1 week. Plan of care has been reviewed with the SOCIAL SCIENCE PROFESSOR providing the service under Physical Therapy direction. Initiate Physical Therapy intervention for pain management as needed, strengthening, bed mobility, transfers, gait, stairs, balance training, and use of assistive device. DISCHARGE RECOMMENDATIONS: [] Home with no services [] [X] Home with services. Patient will benefit from home health PT services in order to progress mobility level using least restrictive assistive ambulatory device, assess home safety, identify additional equipment needs, and establish a functional maintenance program that will increase ability of patient to remain at home. [] Home with outpatient PT [] [] SNF for continued rehabilitation [] [] Prison Care [] [] SNF versus LTC based on ability to participate and progress [] TREATMENT CODE/TIME: Session 1-- 68395 x 24 minutes for 2 units (11:41-12:05). Session 2--47159 x 15 minutes for 1 unit, [id number] x 19 minutes for 1 unit (04:39-05:10).
[2024-12-28] MEDS: Acetaminophen 325 MG TAB 650 MG PO (15:02)
--- NOTE | 2024-12-28 15:13 | CHAPLAIN ---
Yoko was resting in bed when I visited. She told me that she's suppose to be discharged today at 2 p.m. but her daughter told her she can't pick her up, and that she can't stay with her daughter, and her daughter said Yoko would have to stay here. Yoko said her daughter spoke to the doctor about this. Yoko is from [facility], where they didn't have any beds when she went to the ED there. I explained my role and offered support. She she was getting up to go to the bathroom and that she didn't need any help. I let nursing know, as Yoko is suppose to have assistance when walking. Yoko had a Palliative Care Consult with Dr. Welch today.
[2024-12-28] MEDS: Enoxaparin 40 MG/0.4 ML SYR SC (20:19)
[2024-12-29] VITALS: BP 142/63; PULSE 77; RESP 19; TEMP 36.8; O2SAT 95
[2024-12-29 03:44] VITALS: BP 160/63; PULSE 77; RESP 18; TEMP 36.9; O2SAT 94
[2024-12-29] MEDS: Levothyroxine 75 MCG TAB PO (05:41)
[2024-12-29] MEDS: Budesonide/Formoterol 160/4.5 6 GM 60 PUFF INH IH (08:10)
[2024-12-29] MEDS: Clopidogrel 75 MG TAB PO (08:26)
[2024-12-29] MEDS: cefTRIAXone 2 GM/50 ML BAG IVPB (08:26)
[2024-12-29] MEDS: Metoprolol 50 MG TAB PO (08:26)
[2024-12-29] MEDS: Multivitamin TAB 1 TAB PO (08:26)
[2024-12-29] MEDS: Omeprazole 20 MG CAPCR PO (08:26)
[2024-12-29] MEDS: Doxycycline Hyclate 100 MG CAP PO (08:26)
[2024-12-29] MEDS: dilTIAZem CD 180 MG CAPCR PO (08:26)
[2024-12-29 08:29] VITALS: BP 126/81; PULSE 93; RESP 18; TEMP 37.4; O2SAT 90
--- NOTE | 2024-12-29 09:31 | PDOC.CMPRO ---
Date of service: 12/29/24 Time of Service: 09:31 Social Determinants of Health Screening Social Determinants of Health last assessed: 12/29/24 Will the Patient Participate in the Screening?: Yes Do you worry about having a steady place to live?: no Problems where you live: no known problems In the past 12 months, have you had to go without electric, gas, oil or water in your home?: no Have you or anyone in your house had to go without enough food to eat?: no Has lack of transportation kept you from medical appointments or from doing things needed for daily living?: no Has anyone in your life made you feel unsafe or unsupported?: no How hard is it for you to pay for the very basics like food, housing, medical care, and heating? Would you say it is:: Not hard at all Do you want help finding or keeping work or a job?: I do not need or want help If for any reason you need help with day-to-day activities such as bathing, preparing meals, shopping, managing finances, etc., do you get the help you need?: I don?t need any help How often do you feel lonely or isolated from those around you?: Never Do you speak a language other than [place]an at home?: No Does the patient want assistance with any of the above?: No
--- NOTE | 2024-12-29 10:06 | PTTR_ITS ---
PT Notes Visit Reasons: Influenza A and Pneumonia Physical Therapy Inpatient Treatment Note Date: 12/29/2024 Precautions: Fall. ON DROPLET PRECAUTIONS. Activity as tolerated. Subjective: Reported pain on the L knee that did minimally limited distance walked for this session Objective: General Observation: IV access through L UE. Telemetry monitoring in place. Mental Status: Alert and oriented as to person, place, time, and purpose. Able to pay attention, focus, and respond appropriately. Pain: Pain in R knee due to long standing arthritis Vital Signs: WNL as closely monitored by nursing staff; mildly low blood pressure after the walk at 99/65 mmHg, nurse aware Bed Mobility/Transfers: Minimal cueing provided for use of B hands as needed for support, movement sequence, AD management, and posture to reduce fall risk and minimize pain report Rolling with cues for safe/correct technique Sit to stand supervision Stand to sit supervision Gait: Facilitated safe and correct performance of level surface ambulation covering a distance of about 250 using no assistive device, stand by assist only. Mild path deviation but no LOB. Complaiedn of mild SOb and was glad that she could rest. Face mask on while on hallway. Balance: Static Sitting: Normal Dynamic Sitting: Normal Static Standing: Good Dynamic Standing: Fair Assessment: Patient exhibited improved activity tolerance, strength, and balance skills compared to yesterday. Today's ambulation distance was limited by report of R knee pain. Plan of Care/Treatment Plan: 1-2x/day, 7 days/week x 1 week. Plan of care has been reviewed with the BLENDING MACHINE OPERATOR providing the service under Physical Therapy direction. Initiate Physical Therapy intervention for pain management as needed, strengthening, bed mobility, transfers, gait, stairs, balance training, and use of assistive device. DISCHARGE RECOMMENDATIONS: [] Home with no services [] [X] Home with services. Patient will benefit from home health PT services in order to progress mobility level using least restrictive assistive ambulatory device, assess home safety, identify additional equipment needs, and establish a functional maintenance program that will increase ability of patient to remain at home. [] Home with outpatient PT [] [] SNF for continued rehabilitation [] [] Expressive Art Therapist Care [] [] SNF versus LTC based on ability to participate and progress [] TREATMENT CODE/TIME: 79939 x 20 minutes for 2 units (10:06-10:26).
--- NOTE | 2024-12-29 10:30 | W.PM.PROGNOT ---
Date of Service Date of service: 12/29/24 Time of Service: 10:30 Assessment and Plan Assessment and plan (1) Hallucinations: Status: Resolved Assessment and plan: Mentating appropriately currently. Suspect either delirium related to acute infection with pneumonia vs chronic process related to potentially underlying dementia. CT head unremarkable at [facility]. Continue to monitor for now. Will need to frequently oriented the patient, ensure sleep-wake cycles remain intact, keep active during the day and limit nighttime interruptions of sleep. (2) Acute hypoxic respiratory failure: Status: Resolved Assessment and plan: Secondary to post-influenza pneumonia, continue antibiotics day 01/12 has been weaned off supplemental O2 (3) Pneumonia: Status: Acute Assessment and plan: Post-influenza Pneumonia Continue with IV ceftriaxone and azithromycin day 01/12. weaned of supplemental O2 I/S and acapella (4) Palliative care patient: Status: Acute (5) Advanced care planning/counseling discussion: Status: Acute (6) Influenza A: Status: Acute Assessment and plan: Patient completed course of Tamiflu (7) Atrial fibrillation: Status: Acute Assessment and plan: New diagnosis. heart rate 60-80's Continue Diltiazem, adjust as needed. ? CHADS-VASC score is 7 given co-morbidities (11.2% annual risk of CVA) while her HASBLED score is 5 (9.1% risk of major bleeding event annually). Needs discussion with patient and family regarding goals of care and shared decision making during her admission prior to initiating anticoagulation. Palliative care consult placed. Will check an echo and use checking in the importance She would be a good candidate for Watchman and referral to tertiary care center for evaluation if she is interested. echo EF 60% with no significant valvular disease. discontinue telemetry. discussed with Daughter Surekha and patient, will defer anticoagulation decision until after further discussion with PCP. (8) Asthma: Status: Chronic Assessment and plan: stable, Duonebs prn. (9) CAD (coronary artery disease): Status: Chronic Assessment and plan: Troponin is not elevated. No concern for ACS. Home med list from [facility] includes Plavix as one of her medications. Will need pharmacy to reconcile her home medications in the morning. (10) GERD (gastroesophageal reflux disease): Status: Chronic Assessment and plan: Will provide PPI (11) HFrEF (heart failure with reduced ejection fraction): Status: Ruled-out Assessment and plan: EF 60% no evidence of fluid overload or HF Cardiology note in 2021 she was on Entresto and Metoprolol (12) Hypokalemia: Status: Acute Assessment and plan: replete and follow magnesium 2.0 check labs in am (13) Discharge planning issues: Status: Acute Assessment and plan: anticipate home with services tomorrow: New PT/OT, nursing, HAT BLOCKING MACHINE OPERATOR discussed with Dr James Objective Last Vital Signs Temp 37.4 C 12/29/24 08:29 Pulse 93 H 12/29/24 08:29 Resp 18 12/29/24 08:29 BP 126/81 12/29/24 08:29 Pulse Ox 90 L 12/29/24 08:29
--- NOTE | 2024-12-29 10:44 | PDOC.HHF2F_ITS ---
Home Health Referral Home Health Orders Clinical synopsis of why skilled professionals are needed: This 89 years old female with a past medical history significant for CHF with unknown LVEF, CAD, GERD, prior SDH, HTN, hyperlipidemia and CVA presented to [facility] on 12/26/2024 with complaint of increased cough and dyspnea for the past 2 days prior to presentation following her diagnostic of influenza A. The patient had been seen in the IV line but this morning he is likely so I would like to go home I called patient patient usually 2 days prior and was diagnosed with influenza A, then was started on Tamiflu and discharged home. EMS found the patient hypoxic in the 80s with oxygen requirement of 4 L for saturation in the 90s. Chest x-ray demonstrated new right lower lobe infiltrate concerning for superimposed pneumonia. The patient was started on ceftriaxone azithromycin as well as IV fluid. Labs were significant for mild PARUL with creatinine elevated to 1.15 from baseline 0.7, leukocytosis at 12,000, EKG showed notable atrial fibrillation without ischemic changes in the setting of negative troponins. Head CT was negative for any acute findings. There was no admission beds available at [facility] and the patient was transferred to [facility] and accepted by the hospitalist team to the medical surgical floor with telemetry for evaluation management of acute hypoxic respiratory failure in the setting of pneumonia status post influenza infection and acute kidney injury. During the stay the patient completed the Tamiflu course and continued to receive IV antibiotics. Creatinine improved to 0.8. The patient longer needed oxygen requirement. Physical therapy recommended home health with physical therapy on discharge. In the course of atrial fibrillation the patient continued to receive her diltiazem and metoprolol. No anticoagulation was started given CHADS-VASC score is 7 given co-morbidities (11.2% annual risk of CVA) while her HASBLED score is 5 (9.1% risk of major bleeding event annually). This was discussed with the daughter over the phone today. The patient will need to follow-up with his primary care practitioner within 7 days on discharge and discuss the pertinence of pursuing cardiology referral to tertiary center for Watchman procedure. Palliative care also recommended discussion regarding goals of care and CODE STATUS. Prescriptions for short course of antibiotic therapy have been sent to the patient's pharmacy on record. Discussed with Dr. Molina Medical diagnosis necessitation home health referral: Pneumonia s/p Influenza infection Physical Therapist: Check all that apply Increase strength & endurance for safe mobility at home: Ordered To design/establish home maintenance program: Ordered Fall reduction therapy program for patient with history of frequent falls: Ordered Home safety evaluation and teaching/gait training including stair management (if applicable): Ordered Home Bound Status Requires the aid of supportive device (check all that apply): Walker Describe why leaving home would require a considerable and taxing effort: Requires frequent rest periods Encounter Date and Reason: I certify that a FTF encounter for this patient was performed on December 29, 2024 and that such encounter was related to the primary reason the patient requires home health services. The encounter was conducted in the following manner: * By me as the certifying physician, TELEGRAPH PLANT MAINTAINER, PA or * By an inpatient physician, TELEGRAPH PLANT MAINTAINER or PA during an inpatient stay who communicated findings to me, Certification And Authentication I certify that I composed the above information based on my clinical judgment relating to this patient's medical condition and, if applicable, clinical findings communicated to me by the NPP or inpatient physician who performed the FTF encounter. Name of Provider that will be monitoring home health services: Malcolm Perera
--- NOTE | 2024-12-29 10:44 | W.PM.DS.N ---
Date of service: 12/29/24 Time of Service: 10:44 DS: Diagnosis Discharge Diagnosis (1) Hallucinations: Status: Resolved (2) Acute hypoxic respiratory failure: Status: Resolved (3) Pneumonia: Status: Acute (4) Palliative care patient: Status: Acute (5) Advanced care planning/counseling discussion: Status: Acute (6) Influenza A: Status: Acute (7) Atrial fibrillation: Status: Acute (8) Asthma: Status: Chronic (9) CAD (coronary artery disease): Status: Chronic (10) GERD (gastroesophageal reflux disease): Status: Chronic (11) HFrEF (heart failure with reduced ejection fraction): Status: Ruled-out (12) Hypokalemia: Status: Acute (13) Discharge planning issues: Status: Acute Discharge Plan Disposition Patient Disposition: Home W/Home Health Services Condition: Improving Discharge Details Reason For Visit: Influenza A and Pneumonia Admit Date/Time: 12/26/24 18:09 Admit Provider: Bishnu James Attending Provider: Rebeca James Primary Care Provider: Malcolm Perera [facility] Course Hospital Course: This 89 years old female with a past medical history significant for CHF with unknown LVEF, CAD, GERD, prior SDH, HTN, hyperlipidemia and CVA presented to [facility] on 12/26/2024 with complaint of increased cough and dyspnea for the past 2 days prior to presentation following her diagnostic of influenza A. The patient had been seen in the IV line but this morning he is likely so I would like to go home I called patient patient usually 2 days prior and was diagnosed with influenza A, then was started on Tamiflu and discharged home. EMS found the patient hypoxic in the 80s with oxygen requirement of 4 L for saturation in the 90s. Chest x-ray demonstrated new right lower lobe infiltrate concerning for superimposed pneumonia. The patient was started on ceftriaxone azithromycin as well as IV fluid. Labs were significant for mild PARUL with creatinine elevated to 1.15 from baseline 0.7, leukocytosis at 12,000, EKG showed notable atrial fibrillation without ischemic changes in the setting of negative troponins. Head CT was negative for any acute findings. There was no admission beds available at [facility] and the patient was transferred to [facility] and accepted by the hospitalist team to the medical surgical floor with telemetry for evaluation management of acute hypoxic respiratory failure in the setting of pneumonia status post influenza infection and acute kidney injury. During the stay the patient completed the Tamiflu course and continued to receive IV antibiotics. Creatinine improved to 0.8. The patient longer needed oxygen requirement. Physical therapy recommended home health with physical therapy on discharge. In the course of atrial fibrillation the patient continued to receive her diltiazem and metoprolol. No anticoagulation was started given CHADS-VASC score is 7 given co-morbidities (11.2% annual risk of CVA) while her HASBLED score is 5 (9.1% risk of major bleeding event annually). This was discussed with the daughter over the phone today. The patient will need to follow-up with his primary care practitioner within 7 days on discharge and discuss the pertinence of pursuing cardiology referral to tertiary center for Watchman procedure. Palliative care also recommended discussion regarding goals of care and CODE STATUS. Prescriptions for short course of antibiotic therapy have been sent to the patient's pharmacy on record. Discussed with Dr. Molina [place] Meds and New Rx's Prescriptions: New doxycycline hyclate 100 mg Capsule 100 mg PO Q12H Qty: 5 0RF cefpodoxime 100 mg tablet 200 mg PO Q24H Qty: 3 0RF Rx Instructions: must administer with a meal/food omeprazole 20 mg capsule,delayed release(DR/EC) 20 mg PO DAILY Qty: 30 0RF Continued metoprolol succinate 25 mg tablet extended release 24 hr 50 mg PO DAILY diltiazem HCl 180 mg capsule,extended release 24hr 180 mg PO DAILY calcium carbonate 500 mg calcium (1,250 mg) tablet 500 mg PO DAILY acetaminophen 500 mg capsule 1,000 mg PO Q6H PRN tiotropium bromide 2.5 mcg/actuation mist 2 puff inhalation QDAY Centrum Adult 50 Fresh-Fruity 120 mcg tablet,chewable 1 tab PO DAILY clopidogrel [Plavix] 75 mg tablet 75 mg PO DAILY Creon 24,000-76,000 -120,000 unit capsule,delayed release(DR/EC) 1 cap PO BID Patient Comments: one capsule PO with lunch and 2 capsules PO with dinner Rx Instructions: administer with meals and/or snacks ascorbate calcium (vitamin C) 500 mg tablet 500 mg PO DAILY hydrochlorothiazide 25 mg tablet 25 mg PO DAILY levalbuterol HCl 1.25 mg/3 mL solution for nebulization 1.25 mg inhalation Q4H levothyroxine 75 mcg capsule 75 mcg PO DAILY loperamide 2 mg capsule 2 mg PO TID PRN polyethylene glycol 3350 [Miralax] 17 gram/dose powder 17 g PO DAILY potassium chloride 10 mEq capsule, extended release 10 meq PO DAILY simvastatin 40 mg tablet 40 mg PO DAILY cholecalciferol (vitamin D3) 25 mcg (1,000 unit) capsule 25 mcg PO DAILY albuterol sulfate 90 mcg/actuation HFA aerosol inhaler 2 puff inhalation QID PRN senna 8.6 mg capsule 8.6 mg PO DIRECTED PRN budesonide-formoterol [Symbicort] 160-4.5 mcg/actuation HFA aerosol inhaler 2 puff inhalation BID furosemide [Lasix] 20 mg tablet 40 mg PO DAILY Discharge Instructions Stand Alone Forms: Nursing Discharge Form Referrals: Malcolm Perera DO [Primary Care Provider] - (Follow-up within 7 days of discharge please, I left a message for the office, they should be calling you to set up an appointment. ) Activity:: Activity as Tolerated Equipment/Supplies:: Walker Diet:: Heart healthy low-sodium DS: Summary Time Spent with Patient providing and/or coordinating discharge services: Greater than 30 minutes Status at Discharge Functional status at discharge: uses cane/walker Overall status at discharge: patient is progressing back to baseline Mental Status: mental status grossly normal Speech and Movement: speech and movement normal Mood: congruent mood Affect: normal affect Quality:SDOH Health Related Social Needs: No Data to Display Exam Narrative Exam Narrative: Frail elderly female without acute distress, alert oriented x 2, poor historian with signs of cognitive impairment, no behavioral disturbance, no focal deficit, heart is regular telemetry sinus rhythm heart rate 75, unlabored breathing but diminished bibasilar breath sounds, abdomen is non distended- soft nontender, moves all 4 extremities. Psych Mental Status: mental status grossly normal Speech and Movement: speech and movement normal Mood: congruent mood Affect: normal affect DS: Data Vitals/I&O Vitals and I&O: Vital Signs Temperature 37.4 C 12/29/24 08:29 Temperature Source Temporal Artery Scan 12/29/24 08:29 Pulse 93 H 12/29/24 08:29 Pulse Rhythm Irregular 12/26/24 23:07 Respiratory Rate 18 12/29/24 08:29 Respiratory Effort Normal 12/26/24 23:07 Respiratory Pattern Normal 12/26/24 23:07 Blood Pressure 126/81 12/29/24 08:29 Pulse Oximetry 90 L 12/29/24 08:29 Oxygen Delivery Method Room Air 12/29/24 08:29 Oxygen Flow Rate 0 12/29/24 08:29 Pain Level 0 12/29/24 03:44 Comment Re take on BP above .. pt also said the pain is only at a 10 under LT breast when coughing. Talked to RN 12/27/24 10:59 Intake & Output 12/28/24 12/28/24 12/29/24 11:59 23:59 11:59 Intake Total 540 / 540 0 / 540 60 / 60 Balance 540 / 540 0 / 540 60 / 60 Intake: IV 60 / 60 0 / 60 Oral 480 / 480 60 / 60 Other: Urine Color Yellow Yellow Urine Appearance Clear Clear Urine Odor Normal Normal Comment pt up to void independently, pt denies any issues or discomfort pT voided independently. Stool Size Small Small Moderate Stool Characteristics Soft Liquid Soft Formed PFSH All Active Problems (Updated 12/29/24 @ 16:55 by Sanjuana Tovar APRN) Advanced care planning/counseling discussion (Acute) Palliative care patient (Acute) Dementia (Chronic) Discharge planning issues (Acute) Hypokalemia (Acute) GERD (gastroesophageal reflux disease) (Chronic) CAD (coronary artery disease) (Chronic) CHF (congestive heart failure) (Chronic) Influenza A (Acute) Atrial fibrillation (Acute) Pneumonia (Acute) Dysphagia (Acute) Abnormal chest xray (Acute) Asthma (Chronic) Cardiomyopathy (Acute) Medical History Pneumonia Medial epicondylitis Pain, joint, shoulder, right Pain in left knee Palpitations Headache Senile hyperkeratosis Cyst of pancreas Diverticulitis Enterocolitis Chronic gastritis Cough variant asthma Allergic rhinitis Subclavian artery stenosis Cerebrovascular disease HTN (hypertension) Bilateral deafness HLD (hyperlipidemia) Hypothyroidism Non-toxic multinodular goiter Surgical History Hx of cholecystectomy H/O: hysterectomy Social History Smoking/Tobacco Use Status: Never Smoking risk assessment performed?: Yes Alcohol Intake: never Drug use: Never Substance use type: does not use Housing: house Current gender identity: female Do you feel safe at home: Yes Do you feel safe in your relationship?: Yes Time Spent with Patient Time Spent with Patient: 70-84 minutes4 Time was spent: preparing to see the patient(eg.review tests), obtaining and/or reviewing separately otained hiistory, ordering medications,tests, procedures, referring, communicating with other health customer care agent, indepentently interpreting results, counseling the patient and care coordination
[2024-12-29 11:37] VITALS: BP 135/55; PULSE 73; RESP 16; TEMP 37.2; O2SAT 92
[2024-12-29 13:42] VITALS: PULSE 82
--- NOTE | 2024-12-29 14:46 | PDOC.CMDIS ---
Date of service: 12/29/24 Time of Service: 14:46 LACE Index Scoring Tool Questions: Length of Stay (in days): 3 Was the patient admitted via the E.D.?: No Comorbidities: Congestive Heart Failure and Dementia E.D. Visits: 0 Answers: Total Score: 8 Risk of Readmission: Low Risk Care Management Discharge Plan Reason for Hospitalization: Influenza A/Pneumonia Discharge Plan: Yoko is discharged home with New HH PT through [facility]. She will follow up with her PCP and plan of care and transport with family. Patient/Family Education Needs: Review discharge instructions, limitations, medications and plan to follow up with community providers. Discuss ask me three. Services Needed at Discharge: Home Health Care Services ( New [facility] PT) SDOH Health Related Social Needs: No Data to Display
[2024-12-29 14:53] VITALS: BP 128/70; PULSE 74; RESP 16; TEMP 37.7; O2SAT 95
[2024-12-29] MEDS: Acetaminophen 325 MG TAB 650 MG PO (16:06)
== END 2024-12-29 18:58 | disposition home health service (06) | DRG 193 ==
PROVIDERS: Nurse Practitioner Acute Care; Admitting Provider Hospitalist; PCP Specialist/Technologist Athletic Trainer; Responsible Provider Nurse Practitioner Acute Care; Visit Provider Student in an Organized Health Care Education/Training Program
DX: J18.9 Pneumonia, unspecified organism (principal); J96.01 Acute respiratory failure with hypoxia; R44.3 Hallucinations, unspecified; N17.9 Acute kidney failure, unspecified; I42.9 Cardiomyopathy, unspecified; J10.1 Influenza due to other identified influenza virus with other respiratory manifestations; I48.91 Unspecified atrial fibrillation; I25.10 Atherosclerotic heart disease of native coronary artery without angina pectoris; E78.5 Hyperlipidemia, unspecified; E03.9 Hypothyroidism, unspecified; K21.9 Gastro-esophageal reflux disease without esophagitis; E87.6 Hypokalemia; F03.90 Unspecified dementia, unspecified severity, without behavioral disturbance, psychotic disturbance, mood disturbance, and anxiety; Z86.73 Personal history of transient ischemic attack (TIA), and cerebral infarction without residual deficits; K29.50 Unspecified chronic gastritis without bleeding; J45.991 Cough variant asthma; I67.9 Cerebrovascular disease, unspecified; E04.2 Nontoxic multinodular goiter; I70.8 Atherosclerosis of other arteries; I10 Essential (primary) hypertension
CPT/HCPCS: 00123; 36415; 80048; 85027; 94640; 97110; 97162; 97530; J1650; 83735; 93306; 94664; 94667; 94760; 99223; 99233; 99239; J0696

== ENCOUNTER → 2025-04-14 13:59 | Outpatient (BNVA) | payer MEDICARE, MEDICAID, SELFPAY | PROVIDERS: PCP Specialist/Technologist Athletic Trainer; Referring Provider Specialist/Technologist Athletic Trainer; Visit Provider Physician Assistant Surgical | DX: J45.909 Unspecified asthma, uncomplicated (principal) | CPT/HCPCS: 99214 ==

== ENCOUNTER → 2025-04-27 09:45 | Outpatient (BNVA) | payer MEDICARE, MEDICAID, SELFPAY | PROVIDERS: PCP Specialist/Technologist Athletic Trainer; Referring Provider Family Medicine; Visit Provider Nurse Practitioner Adult Health | DX: F03.90 Unspecified dementia, unspecified severity, without behavioral disturbance, psychotic disturbance, mood disturbance, and anxiety (principal); R44.3 Hallucinations, unspecified | CPT/HCPCS: 99215; G2212 ==

== ENCOUNTER → 2025-10-12 12:36 | Outpatient (BNVA) | payer MEDICARE, MEDICAID, SELFPAY | PROVIDERS: PCP Specialist/Technologist Athletic Trainer; Referring Provider Specialist/Technologist Athletic Trainer; Visit Provider Physician Assistant Surgical | DX: J45.909 Unspecified asthma, uncomplicated (principal); R91.8 Other nonspecific abnormal finding of lung field | CPT/HCPCS: 99214 ==